=== PATIENT | male | born 1940 | race Caucasian/White ===

== ENCOUNTER 2017-03-30 14:45 | Emergency (ER) | payer MEDICARE, BC ==
--- NOTE | 2017-03-30 16:20 | EDM.PDOC ---
ED HPI GENERAL MEDICAL PROBLEM - General Chief Complaint: Cardiovascular Problem Stated Complaint: IRREGULAR HEART BEAT, PAIN Time Seen by Provider: 03/30/17 15:55 Source of Information: Reports: Patient History Limitations: Reports: No Limitations - History of Present Illness INITIAL COMMENTS - FREE TEXT/NARRATIVE: This 77 yo male patient reports to the ED with an irregular fast heart rate. The patient reports a history of similar episodes in the past, but normally they stop after 1-2 minutes. The patient reports he noticed his heart rate was going back down by the time he got here. 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 Onset: Today, Sudden Duration: Constant, Improving Location: Reports: Chest Quality: Reports: Ache, Dull Severity: Mild Improves with: Reports: None Worsens with: Reports: None Context: Reports: Other Associated Symptoms: Reports: No Other Symptoms Left Arm Pain Score (Numeric/FACES): 3 - Related Data Allergies Allergy/AdvReac Type Severity Reaction Status Date / Time No Known Allergies Allergy Verified 03/30/17 15:12 Home Meds: Home Meds Apixaban [Eliquis] 5 mg PO BID 03/30/17 [History] Aspirin [Durlaza] 162.5 mg PO BID 03/30/17 [History] Muscle Relaxer 0 mg PO BID 03/30/17 [History] Niacin 500 mg PO DAILY 03/30/17 [History] [place]-3 Fatty Acids [Fish Oil] 300 mg PO DAILY 03/30/17 [History] Omeprazole 20 mg PO DAILY 03/30/17 [History] Pain Medication Apap/... 0 mg PO ASDIRECTED PRN 03/30/17 [History] Sotalol [Betapace] 80 mg PO BID 03/30/17 [History] Vitamin B Complex 1 each PO DAILY 03/30/17 [History] atorvaSTATin [Lipitor] 20 mg PO BID 03/30/17 [History] Past Medical History HEENT History: Reports: Impaired Vision Cardiovascular History: Reports: Afib, High Cholesterol, [place] Respiratory History: Reports: None Gastrointestinal History: Reports: None Genitourinary History: Reports: None Musculoskeletal History: Reports: Other (See Below) Other Musculoskeletal History: back spasms Neurological History: Reports: None Psychiatric History: Reports: None Endocrine/Metabolic History: Reports: None Immunologic History: Reports: None Oncologic (Cancer) History: Reports: None Dermatologic History: Reports: None Social & Family History - Tobacco Use Smoking Status *Q: Never Smoker - Recreational Drug Use Recreational Drug Use: No ED ROS GENERAL - Review of Systems Review Of Systems: ROS reveals no pertinent complaints other than HPI. ED EXAM, GENERAL - Physical Exam Exam: See Below Exam Limited By: No Limitations General Appearance: Alert, WD/WN, No Apparent Distress Eye Exam: Bilateral Eye: EOMI, Normal Inspection, PERRL Ears: Normal External Exam, Normal Canal, Hearing Grossly Normal, Normal TMs Nose: Normal Inspection, Normal Mucosa, No Blood Throat/Mouth: Normal Inspection, Normal Lips, Normal Teeth, Normal Gums, Normal Oropharynx, Normal Voice, No Airway Compromise Head: Atraumatic, Normocephalic Neck: Normal Inspection, Supple, Non-Tender, Full Range of Motion Respiratory/Chest: No Respiratory Distress, Lungs Clear, Normal Breath Sounds, No Accessory Muscle Use, Chest Non-Tender Cardiovascular: Normal Peripheral Pulses, Regular Rate, Rhythm, No Edema, No Gallop, No JVD, No Murmur, Other (initially the patient had a heart rate of 140 , but the rate dropped to a paced rhythem in the 60's prior to exam.) GI/Abdominal: Normal Bowel Sounds, Soft, Non-Tender, No Organomegaly, No Distention, No Abnormal Bruit, No Mass (Male) Exam: Deferred Rectal (Males) Exam: Deferred Back Exam: Normal Inspection, Full Range of Motion, NT Extremities: Normal Inspection, Normal Range of Motion, Non-Tender, Normal Capillary Refill, No Pedal Edema Neurological: Alert, Oriented, CN II-XII Intact, Normal Cognition, Normal Gait, Normal Reflexes, No Motor/Sensory Deficits Psychiatric: Normal Affect, Normal Mood Skin Exam: Warm, Dry, Intact, Normal Color, No Rash Lymphatic: No Adenopathy Course - Vital Signs Last Recorded V/S: Last Vital Signs Temp 36.3 C 03/30/17 14:57 Pulse 143 H 03/30/17 14:57 Resp 18 03/30/17 14:57 BP 129/94 H 03/30/17 14:57 Pulse Ox 97 03/30/17 14:57 - Orders/Labs/Meds Orders: Active Orders 24 hr Category Date Time Status EKG Documentation Completion [RC] URGENT Care 03/30/17 15:00 Ordered Labs: Laboratory Tests 03/30/17 03/30/17 Range/Units 15:04 15:04 WBC 5.9 (5.0-10.0) 10^3/uL RBC 4.82 (4.6-6.2) 10^6/uL Hgb 15.5 (14.0-18.0) g/dL Hct 44.2 (40.0-54.0) % MCV 91.7 (80-100) fL MCH 32.2 (27.0-34.0) pg MCHC 35.1 H (33.0-35.0) g/dL Plt Count 189 (150-450) 10^3/uL Neut % (Auto) 67.7 (42.2-75.2) % Lymph % (Auto) 17.1 L (20.5-50.1) % [place] % (Auto) 12.2 H (2-8) % Eos % (Auto) 2.2 (1.0-3.0) % Baso % (Auto) 0.8 (0.0-1.0) % Sodium 139 (135-145) mmol/L Potassium 5.0 (3.6-5.0) mmol/L Chloride 109 (101-111) mmol/L Carbon Dioxide 21.0 (21.0-31.0) mmol/L Anion Gap 14.0 BUN 23 H (7-18) mg/dL Creatinine 1.4 H (0.6-1.3) mg/dL Est Cr Clr Drug Dosing 51.52 mL/min Estimated GFR (MDRD) 49 BUN/Creatinine Ratio 16.42 Glucose 79 (74-105) mg/dL Calcium 9.4 (8.4-10.2) mg/dl Total Bilirubin 0.7 (0.2-1.0) mg/dL AST 25 (10-42) IU/L ALT 24 (10-60) IU/L Alkaline Phosphatase 85 (42-121) IU/L Troponin I 0.03 H* (0.00-0.02) ng/ml Total Protein 7.7 (6.7-8.2) g/dl Albumin 4.8 (3.2-5.5) g/dl Globulin 2.9 Albumin/Globulin Ratio 1.66 Departure - Departure Time of Disposition: 16:21 Disposition: Home, Self-Care 01 Condition: fair Clinical Impression: Tachycardia Instructions: Atrial Fibrillation, [id number] Forms: ED Department Discharge Care Plan Goals: The patient was advised of the examination, lab and EKG results during the visit. The patient was encouraged to continue to monitor his symptoms. If the patient has any additional symptoms or concerns, the patient should either follow-up with his primary care facility or return to the emergency department. - My Orders Last 24 Hours: My Active Orders 03/30/17 15:00 EKG Documentation Completion [RC] URGENT - Assessment/Plan Last 24 Hours: My Active Orders 03/30/17 15:00 EKG Documentation Completion [RC] URGENT
[2017-03-30 16:33] VITALS: BP 134/79
--- NOTE | 2017-03-31 11:26 | EKG ---
03/30/2017 - DORA GREWAL - A 12-lead EKG shows atrial fibrillation with rapid ventricular response with heart rate of 133. Nonspecific ST-T wave changes noted on lateral leads V4, V5. No significant ST elevation or ST depression noted at this time. [facility] /[id number]
== END 2017-03-30 16:37 | disposition home or self-care (01) ==
LOC: DL.ED 14:55
DX: R00.0 Tachycardia, unspecified (principal); I48.91 Unspecified atrial fibrillation; I25.2 Old myocardial infarction; E78.00 Pure hypercholesterolemia, unspecified; Z79.899 Other long term (current) drug therapy; Z79.82 Long term (current) use of aspirin
CPT/HCPCS: 36415; 80053; 84484; 85025; 93005; 93010; 99283; 99285